=== PATIENT | male | born 1955 | race Caucasian/White ===

== ENCOUNTER 2016-03-25 09:18 | Outpatient (CLI) | payer MEDICARE, OTHER ==
[~2016-03-25 09:18] MED LIST: ASPI81TA2 PO; ATOR40TA PO; CLOP75TA2 PO; CYCL-343 PO; DULO60CA45 PO; ESOM40CA PO; FENO145T PO; FERR1TAB44 PO; FURO40TA2 PO; GABA800T2 PO; HYDR-552 PO; INSU100I4 SQ; INSU3INS6 SUBCUT; METO50TA PO; SITA100T PO; TAMS0.4C34 PO; ZOLP10TA2 PO
== END 2016-03-25 23:59 | disposition home or self-care (01) ==
LOC: WOU 09:18
PROVIDERS: ATTEND Podiatrist Foot & Ankle Surgery
PROC: 0KBV0ZZ Excision of Right Foot Muscle, Open Approach (ICD-10-PCS; principal; 2016-03-25)
PROC: 0JBC0ZZ Excision of Pelvic Region Subcutaneous Tissue and Fascia, Open Approach (ICD-10-PCS; principal; 2016-03-25)
DX: E11.621 Type 2 diabetes mellitus with foot ulcer (principal); L97.513 Non-pressure chronic ulcer of other part of right foot with necrosis of muscle; E11.69 Type 2 diabetes mellitus with other specified complication; M86.671 Other chronic osteomyelitis, right ankle and foot; E11.42 Type 2 diabetes mellitus with diabetic polyneuropathy; Z95.0 Presence of cardiac pacemaker; I25.2 Old myocardial infarction; I11.9 Hypertensive heart disease without heart failure; T81.32XA Disruption of internal operation (surgical) wound, not elsewhere classified, initial encounter; T82.392A Other mechanical complication of femoral arterial graft (bypass), initial encounter
CPT/HCPCS: 11042; 11043; A6402

== ENCOUNTER 2016-04-01 09:25 | Outpatient (CLI) | payer MEDICARE, OTHER | END 2016-04-01 23:59 | disposition home or self-care (01) | LOC: WOU 09:25 | PROVIDERS: ATTEND Podiatrist Foot & Ankle Surgery | PROC: 0JBC0ZZ Excision of Pelvic Region Subcutaneous Tissue and Fascia, Open Approach (ICD-10-PCS; principal; 2016-04-01) | PROC: 0JBQ0ZZ Excision of Right Foot Subcutaneous Tissue and Fascia, Open Approach (ICD-10-PCS; principal; 2016-04-01) | PROC: 0JBM0ZZ Excision of Left Upper Leg Subcutaneous Tissue and Fascia, Open Approach (ICD-10-PCS; principal; 2016-04-01) | DX: E11.621 Type 2 diabetes mellitus with foot ulcer (principal); L97.412 Non-pressure chronic ulcer of right heel and midfoot with fat layer exposed; E11.42 Type 2 diabetes mellitus with diabetic polyneuropathy; E11.51 Type 2 diabetes mellitus with diabetic peripheral angiopathy without gangrene; E11.69 Type 2 diabetes mellitus with other specified complication; M86.671 Other chronic osteomyelitis, right ankle and foot; Z87.891 Personal history of nicotine dependence; Z95.0 Presence of cardiac pacemaker; I25.2 Old myocardial infarction; I11.9 Hypertensive heart disease without heart failure; Z89.431 Acquired absence of right foot; T81.89XA Other complications of procedures, not elsewhere classified, initial encounter; T81.32XA Disruption of internal operation (surgical) wound, not elsewhere classified, initial encounter; T82.392A Other mechanical complication of femoral arterial graft (bypass), initial encounter; Z79.4 Long term (current) use of insulin; Z79.899 Other long term (current) drug therapy | CPT/HCPCS: 11042; A6402 ==

== ENCOUNTER 2016-04-15 09:55 | Outpatient (CLI) | payer MEDICARE, OTHER ==
[~2016-04-15 09:55] MED LIST changes: +FURO-144 PO; -FURO40TA2 PO
== END 2016-04-15 23:59 | disposition home or self-care (01) ==
LOC: WOU 09:55
PROVIDERS: ATTEND Podiatrist Foot & Ankle Surgery
PROC: 0JBM0ZZ Excision of Left Upper Leg Subcutaneous Tissue and Fascia, Open Approach (ICD-10-PCS; principal; 2016-04-15)
PROC: 0JBQ0ZZ Excision of Right Foot Subcutaneous Tissue and Fascia, Open Approach (ICD-10-PCS; principal; 2016-04-15)
DX: E11.621 Type 2 diabetes mellitus with foot ulcer (principal); L97.412 Non-pressure chronic ulcer of right heel and midfoot with fat layer exposed; E11.42 Type 2 diabetes mellitus with diabetic polyneuropathy; Z89.431 Acquired absence of right foot; Z87.891 Personal history of nicotine dependence; Z83.3 Family history of diabetes mellitus; Z95.0 Presence of cardiac pacemaker; I25.2 Old myocardial infarction; S71.102D Unspecified open wound, left thigh, subsequent encounter; X58.XXXD Exposure to other specified factors, subsequent encounter; T81.31XD Disruption of external operation (surgical) wound, not elsewhere classified, subsequent encounter; E78.5 Hyperlipidemia, unspecified; E11.52 Type 2 diabetes mellitus with diabetic peripheral angiopathy with gangrene
CPT/HCPCS: 11042; A6402

== ENCOUNTER 2016-04-29 09:30 | Outpatient (CLI) | payer MEDICARE, OTHER | END 2016-04-29 23:59 | disposition home or self-care (01) | LOC: WOU 09:30 | PROVIDERS: ATTEND Podiatrist Foot & Ankle Surgery | DX: S71.102D Unspecified open wound, left thigh, subsequent encounter (principal); X58.XXXD Exposure to other specified factors, subsequent encounter; Z89.431 Acquired absence of right foot; E11.621 Type 2 diabetes mellitus with foot ulcer; L97.412 Non-pressure chronic ulcer of right heel and midfoot with fat layer exposed; E11.51 Type 2 diabetes mellitus with diabetic peripheral angiopathy without gangrene; Z87.891 Personal history of nicotine dependence; I25.2 Old myocardial infarction; Z95.0 Presence of cardiac pacemaker; I11.9 Hypertensive heart disease without heart failure; Z86.74 Personal history of sudden cardiac arrest; E78.5 Hyperlipidemia, unspecified; Z79.4 Long term (current) use of insulin; Z79.899 Other long term (current) drug therapy; E11.69 Type 2 diabetes mellitus with other specified complication; M86.671 Other chronic osteomyelitis, right ankle and foot; E11.42 Type 2 diabetes mellitus with diabetic polyneuropathy | CPT/HCPCS: 11042; A6402; G0463 ==

== ENCOUNTER 2016-05-13 09:52 | Outpatient (CLI) | payer MEDICARE, OTHER ==
[2016-05-14] MEDS ORDERED: INSU100I24 SQ (01:06)
[2016-05-14] MEDS ORDERED: DOCU-106 PO (01:06)
[2016-05-14] MEDS ORDERED: CLOP75TA2 PO (01:06)
[2016-05-14] MEDS ORDERED: INSU100V7 SQ (01:06)
[2016-05-14] MEDS ORDERED: TAMS0.4C34 PO (01:06)
[2016-05-14] MEDS ORDERED: FENO145T20 PO (01:06)
[2016-05-14] MEDS ORDERED: [UNRECOGNIZED DRUG - OTHER] PO (01:06)
[2016-05-14] MEDS ORDERED: APIX2.5T PO (01:06)
[2016-05-14] MEDS ORDERED: GABA-534 PO (01:06)
[2016-05-14] MEDS ORDERED: SEVE800T8 PO ×2 (01:06)
[2016-05-14] MEDS ORDERED: ATOR40TA PO (01:06)
[2016-05-14] MEDS ORDERED: ZOLP10TA6 PO (01:06)
[2016-05-14] MEDS ORDERED: CARV12.52 PO (01:06)
[2016-05-14] MEDS ORDERED: DEXL60CA3 PO (01:06)
[2016-05-14] MEDS ORDERED: ASPI81TA2 PO (01:06)
== END 2016-05-13 23:59 | disposition home health service (06) ==
LOC: WOU 09:52
PROVIDERS: ATTEND Podiatrist Foot & Ankle Surgery
DX: E11.621 Type 2 diabetes mellitus with foot ulcer (principal); L97.412 Non-pressure chronic ulcer of right heel and midfoot with fat layer exposed; E11.42 Type 2 diabetes mellitus with diabetic polyneuropathy; E11.65 Type 2 diabetes mellitus with hyperglycemia; E11.51 Type 2 diabetes mellitus with diabetic peripheral angiopathy without gangrene; Z87.891 Personal history of nicotine dependence; Z83.3 Family history of diabetes mellitus; I25.2 Old myocardial infarction; E11.69 Type 2 diabetes mellitus with other specified complication; M86.671 Other chronic osteomyelitis, right ankle and foot; L03.115 Cellulitis of right lower limb; I10 Essential (primary) hypertension; E78.5 Hyperlipidemia, unspecified; Z95.0 Presence of cardiac pacemaker; Z79.4 Long term (current) use of insulin; Z79.899 Other long term (current) drug therapy; S71.102D Unspecified open wound, left thigh, subsequent encounter; X58.XXXD Exposure to other specified factors, subsequent encounter
CPT/HCPCS: 11042; A6402; G0463

== ENCOUNTER 2016-05-13 13:53 | Inpatient (IN) | payer MEDICARE, OTHER ==
[~2016-05-13] VITALS: Ht 160 cm; Wt 94.8 kg
[2016-05-13 15:00] VITALS: BP 164/80
[2016-05-13] MEDS ORDERED: VANCOMYCIN 1 GM in IV D5W 250ml IV ONE (15:30)
[2016-05-13 16:06] LABS: BASOPHILS # (AUTO) 0.1 /CMM (0.0-0.2); BASOPHILS % (AUTO) 0.8 % (0.0-2.0); DIFF TOTAL % 100 %; EOSINOPHILS # (AUTO) 0.4 /CMM (0.0-0.7); EOSINOPHILS % (AUTO) 5.6 % (0.0-6.0); HEMATOCRIT 36 % (39-51); HEMOGLOBIN 11.6 g/dL (13.5-17.5); LYMPHOCYTES # (AUTO) 1.3 /CMM (0.8-4.8); LYMPHOCYTES % (AUTO) 17.9 % (20.0-44.0); MEAN CORPUSCULAR HEMOGLOBIN 30 PG (26.0-33.0); MEAN CORPUSCULAR HGB CONC 32 g/dl (31.0-36.0); MEAN CORPUSCULAR VOLUME 95 fL (80-96); MONOCYTES # (AUTO) 0.5 /CMM (0.1-1.30); MONOCYTES % (AUTO) 6.9 % (2.0-12.0); NEUTROPHILS % (AUTO) 68.8 % (43.0-81.0); PLATELET COUNT (AUTO) 239 /CMM (150-450); RED BLOOD CELL COUNT(AUTO) 3.82 MIL/uL (4.5-6.0); WHITE BLOOD COUNT (AUTO) 7.2 K/uL (4.3-11.0)
[2016-05-13 16:10] LABS: ALBUMIN 3.5 g/dL (3.4-5.0); CALCIUM, SERUM 8.4 mg/dL (8.5-10.1); POTASSIUM 4.3 mmol/L (3.5-5.1)
[2016-05-13] MEDS ORDERED: FEE PK DOSING 1 MIN EA MC ONE (16:16)
[2016-05-13 16:33] LABS: ERYTHROCYTE SEDIMENTATION RATE 43 MM/HR (0-20)
[2016-05-13] MEDS ORDERED: PIPERACILLIN /TAZOBACTAM 3.375 G in IV D5W 50 ML IV SCH (18:00)
[2016-05-13] MEDS ORDERED: DEXTROSE 50%-WATER 50 ML DISP.SYRIN IV PRN (18:00)
[2016-05-13] MEDS ORDERED: SECONDARY IV SET 1 EA INFUS.SET MC ONE ×2 (18:11→19:37)
[2016-05-13] MEDS ORDERED: IV SET PRIMARY PUMP SET 1 EA INFUS.SET MC ONE (18:11)
[2016-05-13] MEDS ORDERED: IV NS 0.9% 250 ML IV ONE (18:15)
[2016-05-13] MEDS: PIPERACILLIN /TAZOBACTAM 2.25 G in IV D5W 50 ML IV SCH ×2 (19:39→23:37)
[2016-05-13 20:00] VITALS: BP 164/80
[2016-05-13] MEDS: MORPHINE SULFATE INJ 2 MG/ML DISP.SYRIN IV PRN (22:07)
[2016-05-13] MEDS: BLOOD SUGAR DIAGNOSTIC 1 EACH STRIP IN SCH (22:16)
[2016-05-13] MEDS: INSULIN REGULAR, HUMAN 100 UNIT/ML 3 ML VIAL SQ PRN (22:21)
[2016-05-14] MEDS ORDERED: INSU100I24 SQ (01:06)
[2016-05-14] MEDS ORDERED: SEVE800T8 PO ×2 (01:06)
[2016-05-14] MEDS ORDERED: TAMS0.4C34 PO (01:06)
[2016-05-14] MEDS ORDERED: INSU100V7 SQ (01:06)
[2016-05-14] MEDS ORDERED: CARV12.52 PO (01:06)
[2016-05-14] MEDS ORDERED: APIX2.5T PO (01:06)
[2016-05-14] MEDS ORDERED: DOCU-106 PO (01:06)
[2016-05-14] MEDS ORDERED: CLOP75TA2 PO (01:06)
[2016-05-14] MEDS ORDERED: GABA-534 PO (01:06)
[2016-05-14] MEDS ORDERED: FENO145T20 PO (01:06)
[2016-05-14] MEDS ORDERED: ZOLP10TA6 PO (01:06)
[2016-05-14] MEDS ORDERED: DEXL60CA3 PO (01:06)
[2016-05-14] MEDS ORDERED: [UNRECOGNIZED DRUG - OTHER] PO (01:06)
[2016-05-14] MEDS ORDERED: ASPI81TA2 PO (01:06)
[2016-05-14] MEDS ORDERED: ATOR40TA PO (01:06)
[2016-05-14] MEDS: MORPHINE SULFATE INJ 2 MG/ML DISP.SYRIN IV PRN ×5 (02:11→22:30)
[2016-05-14] MEDS: PIPERACILLIN /TAZOBACTAM 2.25 G in IV D5W 50 ML IV SCH ×3 (05:44→17:13)
[2016-05-14] MEDS: BLOOD SUGAR DIAGNOSTIC 1 EACH STRIP IN SCH ×4 (06:54→22:31)
[2016-05-14] MEDS: INSULIN REGULAR, HUMAN 100 UNIT/ML 3 ML VIAL SQ PRN ×4 (06:57→22:35)
[2016-05-14 08:00] VITALS: BP 168/81
[2016-05-14] MEDS: SILVER SULFADIAZINE CREAM 25 GM TUBE TP SCH (08:01)
[2016-05-14 08:35] LABS: CALCIUM, SERUM 8.6 mg/dL (8.5-10.1); CREATININE 2.5 mg/dL (0.6-1.3); POTASSIUM 4.3 mmol/L (3.5-5.1)
[2016-05-14] MEDS ORDERED: VANCOMYCIN 500 MG in IV D5W 100 ML IV PRN (15:30)
[2016-05-14 16:00] VITALS: BP 180/81
[2016-05-14] MEDS ORDERED: VANCOMYCIN 1 GM in IV D5W 250 ML IV ONE ×2 (17:00→21:00)
[2016-05-14] MEDS: BENAZEPRIL HCL 20 MG TABLET PO SCH (17:00)
[2016-05-14] MEDS: CARVEDILOL 12.5 MG TABLET PO SCH (17:06)
[2016-05-14] MEDS ORDERED: VANCOMYCIN 1 GM in IV D5W 250 ML IV SCH (18:00)
[2016-05-14 20:00] VITALS: BP 142/99
[2016-05-14 22:16] VITALS: BP 142/99
[2016-05-15] MEDS: PIPERACILLIN /TAZOBACTAM 2.25 G in IV D5W 50 ML IV SCH ×5 (00:14→23:56)
[2016-05-15] MEDS ORDERED: VANCOMYCIN 1 GM in IV D5W 250 ML IV SCH (03:00)
[2016-05-15] MEDS: BLOOD SUGAR DIAGNOSTIC 1 EACH STRIP IN SCH ×4 (05:40→20:59)
[2016-05-15 06:48] LABS: CALCIUM, SERUM 8.4 mg/dL (8.5-10.1); CREATININE 2.6 mg/dL (0.6-1.3)
[2016-05-15] MEDS ORDERED: LIDOCAINE HCL/PF 1% 30 ML SDV ONE (07:29)
[2016-05-15 08:00] VITALS: BP 151/86
[2016-05-15 08:50] VITALS: BP 120/65
[2016-05-15] MEDS: CARVEDILOL 12.5 MG TABLET PO SCH (09:00)
[2016-05-15] MEDS: BENAZEPRIL HCL 20 MG TABLET PO SCH (09:00)
[2016-05-15] MEDS: SILVER SULFADIAZINE CREAM 25 GM TUBE TP SCH (09:40)
[2016-05-15] MEDS ORDERED: IV SET PRIMARY PUMP SET 1 EA INFUS.SET MC ONE (12:12)
[2016-05-15] MEDS ORDERED: SECONDARY IV SET 1 EA INFUS.SET MC ONE ×2 (12:12→15:32)
[2016-05-15] MEDS: MORPHINE SULFATE INJ 2 MG/ML DISP.SYRIN IV PRN ×5 (12:37→22:33)
[2016-05-15] MEDS: INSULIN REGULAR, HUMAN 100 UNIT/ML 3 ML VIAL SQ PRN ×3 (12:43→21:03)
[2016-05-15] MEDS ORDERED: VANCOMYCIN 1 GM in IV D5W 250 ML IV PRN (14:00)
[2016-05-15] MEDS: HYDROCODONE/APAP 5/325MG 1 EACH TABLET PO PRN (15:16)
[2016-05-15 16:00] VITALS: BP 156/84
[2016-05-15] MEDS ORDERED: KETOROLAC TROMETHAMINE INJ 30 MG/ML VIAL IM ONE (16:30)
[2016-05-15] MEDS ORDERED: MORPHINE SULFATE INJ 2 MG/ML DISP.SYRIN IV SCH (17:00)
[2016-05-15 20:00] VITALS: BP 158/71
[2016-05-15 20:41] VITALS: BP 158/71
[2016-05-16] MEDS: MORPHINE SULFATE INJ 2 MG/ML DISP.SYRIN IV PRN ×2 (00:36→02:39)
[2016-05-16] MEDS: HYDROCODONE/APAP 5/325MG 1 EACH TABLET PO PRN (05:32)
[2016-05-16] MEDS: BLOOD SUGAR DIAGNOSTIC 1 EACH STRIP IN SCH ×4 (05:40→20:45)
[2016-05-16] MEDS: INSULIN REGULAR, HUMAN 100 UNIT/ML 3 ML VIAL SQ PRN ×4 (05:42→20:59)
[2016-05-16] MEDS: PIPERACILLIN /TAZOBACTAM 2.25 G in IV D5W 50 ML IV SCH ×4 (05:44→23:07)
[2016-05-16 07:36] LABS: CALCIUM, SERUM 8.6 mg/dL (8.5-10.1); CREATININE 3.3 mg/dL (0.6-1.3); POTASSIUM 4.4 mmol/L (3.5-5.1)
[2016-05-16 08:00] VITALS: BP 173/85
[2016-05-16] MEDS: CARVEDILOL 12.5 MG TABLET PO SCH (09:00)
[2016-05-16] MEDS: BENAZEPRIL HCL 20 MG TABLET PO SCH (09:00)
[2016-05-16] MEDS: SILVER SULFADIAZINE CREAM 25 GM TUBE TP SCH (09:40)
[2016-05-16] MEDS ORDERED: BISACODYL SUPP (10 MG) 10 MG/SUPP.RECT SUPP.RECT RC PRN (10:30)
[2016-05-16] MEDS ORDERED: CYCLOBENZAPRINE 10 MG TABLET PO PRN (10:30)
[2016-05-16] MEDS ORDERED: GABAPENTIN 300 MG CAPSULE PO SCH (10:30)
[2016-05-16] MEDS: APIXABAN 2.5 MG TABLET PO SCH (12:00)
[2016-05-16] MEDS: TAMSULOSIN 0.4 MG CAP.SR.24H PO SCH (12:03)
[2016-05-16] MEDS: FUROSEMIDE 40 MG TABLET PO SCH (12:04)
[2016-05-16] MEDS: CLOPIDOGREL BISULFATE 75 MG TABLET PO SCH (12:04)
[2016-05-16] MEDS: ASPIRIN 81 MG TAB.CHEW PO SCH (12:04)
[2016-05-16] MEDS: POLYETHYLENE GLYCOL 3350 17 GM POWD.PACK PO PRN ×2 (12:08→17:32)
[2016-05-16] MEDS: ATORVASTATIN 40 MG TABLET PO SCH (17:15)
[2016-05-16] MEDS: SENNOSIDES 8.6 MG TABLET PO SCH (19:46)
[2016-05-16 20:00] VITALS: BP 185/87
[2016-05-16 20:04] VITALS: BP 131/59
[2016-05-16] MEDS ORDERED: HEPARIN SODIUM, PORCINE 5000 UNITS/1 ML VIAL SQ SCH (21:00)
[2016-05-16] MEDS ORDERED: hydrALAZINE HCL 10 MG TABLET PO ONE (21:00)
[2016-05-16] MEDS ORDERED: hydrALAZINE HCL 10 MG TABLET ONE (21:03)
[2016-05-17] MEDS: HYDROCODONE/APAP 5/325MG 1 EACH TABLET PO PRN ×2 (02:43→22:11)
[2016-05-17] MEDS: PIPERACILLIN /TAZOBACTAM 2.25 G in IV D5W 50 ML IV SCH ×3 (05:01→17:06)
[2016-05-17] MEDS: BLOOD SUGAR DIAGNOSTIC 1 EACH STRIP IN SCH ×4 (05:30→22:09)
[2016-05-17] MEDS: INSULIN REGULAR, HUMAN 100 UNIT/ML 3 ML VIAL SQ PRN ×4 (05:36→22:32)
[2016-05-17 07:12] LABS: CALCIUM, SERUM 8.6 mg/dL (8.5-10.1); CREATININE 3.4 mg/dL (0.6-1.3); PHOSPHORUS 4.1 mg/dL (2.5-4.9); POTASSIUM 4.6 mmol/L (3.5-5.1)
[2016-05-17 08:00] VITALS: BP 143/74
[2016-05-17] MEDS: ASPIRIN 81 MG TAB.CHEW PO SCH (08:23)
[2016-05-17] MEDS: CLOPIDOGREL BISULFATE 75 MG TABLET PO SCH (08:23)
[2016-05-17] MEDS: TAMSULOSIN 0.4 MG CAP.SR.24H PO SCH (08:23)
[2016-05-17] MEDS: BENAZEPRIL HCL 20 MG TABLET PO SCH (08:24)
[2016-05-17] MEDS: APIXABAN 2.5 MG TABLET PO SCH (08:24)
[2016-05-17] MEDS: FUROSEMIDE 40 MG TABLET PO SCH (08:24)
[2016-05-17] MEDS: CARVEDILOL 12.5 MG TABLET PO SCH (08:24)
[2016-05-17] MEDS: SILVER SULFADIAZINE CREAM 25 GM TUBE TP SCH (08:27)
[2016-05-17] MEDS ORDERED: SECONDARY IV SET 1 EA INFUS.SET MC ONE (10:08)
[2016-05-17] MEDS: Magnesium 1GM/D5W 100ML PREMIX 100 ML IV SCH ×2 (10:12→11:25)
[2016-05-17] MEDS: MORPHINE SULFATE INJ 2 MG/ML DISP.SYRIN IV PRN ×3 (15:22→22:27)
[2016-05-17] MEDS ORDERED: GABAPENTIN 300 MG CAPSULE PO PRN (15:30)
[2016-05-17 16:00] VITALS: BP 137/60
[2016-05-17] MEDS: ATORVASTATIN 40 MG TABLET PO SCH (17:06)
[2016-05-17 20:00] VITALS: BP 166/78
[2016-05-17] MEDS: SENNOSIDES 8.6 MG TABLET PO SCH (22:10)
[2016-05-18] MEDS: PIPERACILLIN /TAZOBACTAM 2.25 G in IV D5W 50 ML IV SCH ×4 (00:23→17:27)
[2016-05-18] MEDS: MORPHINE SULFATE INJ 2 MG/ML DISP.SYRIN IV PRN ×3 (00:42→18:49)
[2016-05-18] MEDS: BLOOD SUGAR DIAGNOSTIC 1 EACH STRIP IN SCH ×4 (05:56→21:14)
[2016-05-18 08:00] VITALS: BP 165/79
[2016-05-18] MEDS: FUROSEMIDE 40 MG TABLET PO SCH (08:01)
[2016-05-18] MEDS: TAMSULOSIN 0.4 MG CAP.SR.24H PO SCH (08:02)
[2016-05-18] MEDS: ASPIRIN 81 MG TAB.CHEW PO SCH (08:02)
[2016-05-18] MEDS: CLOPIDOGREL BISULFATE 75 MG TABLET PO SCH (08:02)
[2016-05-18] MEDS: APIXABAN 2.5 MG TABLET PO SCH (08:02)
[2016-05-18] MEDS: CARVEDILOL 12.5 MG TABLET PO SCH (08:03)
[2016-05-18] MEDS: BENAZEPRIL HCL 20 MG TABLET PO SCH (08:03)
[2016-05-18] MEDS: SILVER SULFADIAZINE CREAM 25 GM TUBE TP SCH (08:06)
[2016-05-18 08:13] LABS: CALCIUM, SERUM 8.5 mg/dL (8.5-10.1); CREATININE 2.9 mg/dL (0.6-1.3); POTASSIUM 4.7 mmol/L (3.5-5.1)
[2016-05-18] MEDS: INSULIN REGULAR, HUMAN 100 UNIT/ML 3 ML VIAL SQ PRN ×3 (11:59→21:18)
[2016-05-18 16:00] VITALS: BP 149/64
[2016-05-18] MEDS: ATORVASTATIN 40 MG TABLET PO SCH (17:27)
[2016-05-18] MEDS ORDERED: LEVOFLOXACIN (250MG) 250 MG TABLET PO SCH (18:30)
== END 2016-05-18 21:20 | disposition home health service (06) | DRG 623 ==
LOC: WOUND3 13:53
PROVIDERS: ADMIT Podiatrist Foot & Ankle Surgery; ATTEND Internal Medicine
PROC: 05H533Z Insertion of Infusion Device into Right Subclavian Vein, Percutaneous Approach (ICD-10-PCS; 2016-05-13)
PROC: 0Y9M0ZX Drainage of Right Foot, Open Approach, Diagnostic (ICD-10-PCS; 2016-05-15)
PROC: 0L8S0ZZ Division of Right Ankle Tendon, Open Approach (ICD-10-PCS; 2016-05-15)
PROC: 5A1D60Z (ICD-10-PCS; 2016-05-15)
PROC: 0QBN0ZZ Excision of Right Metatarsal, Open Approach (ICD-10-PCS; principal; 2016-05-15 07:30)
PROC: 0HXMXZZ Transfer Right Foot Skin, External Approach (ICD-10-PCS; 2016-05-15 07:30)
DX: E11.621 Type 2 diabetes mellitus with foot ulcer (principal); I13.2 Hypertensive heart and chronic kidney disease with heart failure and with stage 5 chronic kidney disease, or end stage renal disease; I50.32 Chronic diastolic (congestive) heart failure; N18.6 End stage renal disease; E11.40 Type 2 diabetes mellitus with diabetic neuropathy, unspecified; E11.22 Type 2 diabetes mellitus with diabetic chronic kidney disease; E11.51 Type 2 diabetes mellitus with diabetic peripheral angiopathy without gangrene; E11.65 Type 2 diabetes mellitus with hyperglycemia; E66.9 Obesity, unspecified; G47.33 Obstructive sleep apnea (adult) (pediatric); E78.5 Hyperlipidemia, unspecified; I25.10 Atherosclerotic heart disease of native coronary artery without angina pectoris; L97.519 Non-pressure chronic ulcer of other part of right foot with unspecified severity; Z99.2 Dependence on renal dialysis; Z95.0 Presence of cardiac pacemaker; N40.0 Benign prostatic hyperplasia without lower urinary tract symptoms; Z95.1 Presence of aortocoronary bypass graft; Z87.891 Personal history of nicotine dependence; Z89.439 Acquired absence of unspecified foot; E11.42 Type 2 diabetes mellitus with diabetic polyneuropathy; J44.9 Chronic obstructive pulmonary disease, unspecified
CPT/HCPCS: 36415; 71010-TC; 73630-TC; 73700-TC; 80048-TC; 80202-TC; 82040-TC; 82962-TC; 83735-TC; 84100-TC; 85025-TC; 85652-TC; 87070-TC; 87075-TC; 88305-TC; 88311-TC; 88312-TC; 90935-TC; 93307-TC; 97001-TC; A6402; J1815; J1885; J2270; J2543; J3370; J3475; J3490; J7050; J7060

== ENCOUNTER 2016-05-20 09:37 | Outpatient (CLI) | payer MEDICARE, OTHER ==
[~2016-05-20 09:37] MED LIST changes: +APIX2.5T PO; +CARV12.52 PO; +DEXL60CA3 PO; +DOCU-106 PO; +FENO145T20 PO; +GABA-534 PO; +INSU100I24 SQ; +INSU100V7 SQ; +SEVE800T8 PO; +ZOLP10TA6 PO; +[UNRECOGNIZED DRUG - OTHER] PO
== END 2016-05-20 23:59 | disposition home or self-care (01) ==
LOC: WOU 09:37
PROVIDERS: ATTEND Podiatrist Foot & Ankle Surgery
DX: Z48.817 Encounter for surgical aftercare following surgery on the skin and subcutaneous tissue (principal); E11.621 Type 2 diabetes mellitus with foot ulcer; L97.419 Non-pressure chronic ulcer of right heel and midfoot with unspecified severity; E11.42 Type 2 diabetes mellitus with diabetic polyneuropathy; Z87.891 Personal history of nicotine dependence; E11.51 Type 2 diabetes mellitus with diabetic peripheral angiopathy without gangrene; E11.65 Type 2 diabetes mellitus with hyperglycemia; Z89.421 Acquired absence of other right toe(s); I10 Essential (primary) hypertension; E11.21 Type 2 diabetes mellitus with diabetic nephropathy; E78.5 Hyperlipidemia, unspecified; I25.2 Old myocardial infarction; Z95.0 Presence of cardiac pacemaker
CPT/HCPCS: A6253; A6402; G0463

== ENCOUNTER 2016-05-27 09:22 | Outpatient (CLI) | payer MEDICARE, OTHER | END 2016-05-27 23:59 | disposition home or self-care (01) | LOC: WOU 09:22 | PROVIDERS: ATTEND Podiatrist Foot & Ankle Surgery | DX: Z48.817 Encounter for surgical aftercare following surgery on the skin and subcutaneous tissue (principal); E11.42 Type 2 diabetes mellitus with diabetic polyneuropathy; Z89.431 Acquired absence of right foot; E11.51 Type 2 diabetes mellitus with diabetic peripheral angiopathy without gangrene; Z87.891 Personal history of nicotine dependence; I10 Essential (primary) hypertension; E11.21 Type 2 diabetes mellitus with diabetic nephropathy; E78.5 Hyperlipidemia, unspecified; I25.2 Old myocardial infarction; Z95.0 Presence of cardiac pacemaker | CPT/HCPCS: A6253; A6402; G0463 ==

== ENCOUNTER 2016-06-03 09:12 | Outpatient (CLI) | payer MEDICARE, OTHER | END 2016-06-03 23:59 | disposition home or self-care (01) | LOC: WOU 09:12 | PROVIDERS: ATTEND Podiatrist Foot & Ankle Surgery | DX: Z48.817 Encounter for surgical aftercare following surgery on the skin and subcutaneous tissue (principal); E11.65 Type 2 diabetes mellitus with hyperglycemia; E11.51 Type 2 diabetes mellitus with diabetic peripheral angiopathy without gangrene; I25.2 Old myocardial infarction; I11.9 Hypertensive heart disease without heart failure; Z87.891 Personal history of nicotine dependence; Z86.74 Personal history of sudden cardiac arrest; E78.5 Hyperlipidemia, unspecified; Z79.899 Other long term (current) drug therapy; Z79.4 Long term (current) use of insulin; Z95.0 Presence of cardiac pacemaker | CPT/HCPCS: A6209; A6402; G0463 ==

== ENCOUNTER 2016-06-10 09:31 | Outpatient (CLI) | payer MEDICARE, OTHER | END 2016-06-10 23:59 | disposition home or self-care (01) | LOC: WOU 09:31 | PROVIDERS: ATTEND Podiatrist Foot & Ankle Surgery | PROC: 0JBQ0ZZ Excision of Right Foot Subcutaneous Tissue and Fascia, Open Approach (ICD-10-PCS; principal; 2016-06-10) | DX: T86.828 Other complications of skin graft (allograft) (autograft) (principal); E11.69 Type 2 diabetes mellitus with other specified complication; M86.671 Other chronic osteomyelitis, right ankle and foot; E11.621 Type 2 diabetes mellitus with foot ulcer; L97.412 Non-pressure chronic ulcer of right heel and midfoot with fat layer exposed; E11.42 Type 2 diabetes mellitus with diabetic polyneuropathy; Z87.891 Personal history of nicotine dependence; Z95.0 Presence of cardiac pacemaker; E11.52 Type 2 diabetes mellitus with diabetic peripheral angiopathy with gangrene; I25.2 Old myocardial infarction; Z79.82 Long term (current) use of aspirin; Z79.899 Other long term (current) drug therapy; E11.22 Type 2 diabetes mellitus with diabetic chronic kidney disease; I13.11 Hypertensive heart and chronic kidney disease without heart failure, with stage 5 chronic kidney disease, or end stage renal disease; N18.6 End stage renal disease; Z99.2 Dependence on renal dialysis; E66.9 Obesity, unspecified; Z68.41 Body mass index [BMI] 40.0-44.9, adult; M21.541 Acquired clubfoot, right foot; Z89.431 Acquired absence of right foot | CPT/HCPCS: 11042; A6402; G0463 ==

== ENCOUNTER 2016-06-17 09:35 | Outpatient (CLI) | payer MEDICARE, OTHER | END 2016-06-17 23:59 | disposition home or self-care (01) | LOC: WOU 09:35 | PROVIDERS: ATTEND Podiatrist Foot & Ankle Surgery | DX: T86.828 Other complications of skin graft (allograft) (autograft) (principal); E11.621 Type 2 diabetes mellitus with foot ulcer; L97.412 Non-pressure chronic ulcer of right heel and midfoot with fat layer exposed; E11.42 Type 2 diabetes mellitus with diabetic polyneuropathy; E11.65 Type 2 diabetes mellitus with hyperglycemia; H60.311 Diffuse otitis externa, right ear; Z87.891 Personal history of nicotine dependence; I25.2 Old myocardial infarction; I11.9 Hypertensive heart disease without heart failure; Z95.0 Presence of cardiac pacemaker; Z89.431 Acquired absence of right foot; E78.5 Hyperlipidemia, unspecified; E11.69 Type 2 diabetes mellitus with other specified complication; M86.671 Other chronic osteomyelitis, right ankle and foot; M21.541 Acquired clubfoot, right foot; E66.9 Obesity, unspecified; Z68.41 Body mass index [BMI] 40.0-44.9, adult; E11.51 Type 2 diabetes mellitus with diabetic peripheral angiopathy without gangrene | CPT/HCPCS: 11042; A6402; G0463 ==